=== PATIENT | male | born 1955 | race Caucasian/White ===

== ENCOUNTER 2020-01-31 10:24 | Emergency (ER) | payer SELFPAY ==
[~2020-01-31] VITALS: Ht 172.7 cm; Wt 85.7 kg
[2020-01-31 10:33] VITALS: BP 167/92
[2020-01-31] MEDS ORDERED: KETOROLAC 60 MG/2 ML VIAL IM ONE (11:25)
[2020-01-31] MEDS ORDERED: CLINDAMYCIN 600 MG/4 ML VIAL IM ONE (11:25)
[2020-01-31 11:42] VITALS: BP 127/89
== END 2020-01-31 11:44 | disposition home or self-care (01) ==
LOC: MED 10:24
DX: K04.7 Periapical abscess without sinus (principal); I10 Essential (primary) hypertension; F12.10 Cannabis abuse, uncomplicated; Z88.0 Allergy status to penicillin
CPT/HCPCS: 93005; 96372; 99283; J1885; J3490